=== PATIENT | female | born 1955 | race Caucasian/White ===

== ENCOUNTER 2017-06-10 10:01 | Day surgery (SDC) | payer OTHER ==
[2017-06-10] MEDS ORDERED: PROPOFOL 10 MG/ML VIAL IV ONE (10:02)
[2017-06-10] MEDS ORDERED: LIDOCAINE 2% MDV (20MG/ML) 20ML VIAL IV ONE (10:02)
--- NOTE | 2017-06-11 13:50 | Operative Note ---
DATE OF SURGERY: 06/10/2017 REFERRING PHYSICIAN: Wilbert Lopez DO PREOPERATIVE DIAGNOSIS: See below. POSTOPERATIVE DIAGNOSIS: See below. PROCEDURE: COLONOSCOPY to the cecum. INDICATION: Colorectal cancer screening. Intravenous sedation was administered by the Department of Anesthesiology and included Diprivan titrated to effect. PROCEDURE: Following informed consent from this alert individual, including a discussion of the risks and benefits of the procedure and an opportunity for the patient to ask questions, the patient was placed in the left lateral decubitus position. A digital rectal examination was performed. No abnormalities were noted. Following this, an Olympus [id number] video colonoscope was inserted into the rectum without resistance. The rectal mucosa had a normal appearance, with normal folds and distensibility. The colonoscope was advanced up through the colon to the level of the cecum without much difficulty. Throughout the bowel, the mucosa appeared normal, the folds are normal and the bowel is fairly well distensible. The cecum was defined by noting the appendiceal orifice and ileocecal valve. From the base of the cecum, the colonoscope was then withdrawn. The colon preparation was good. No abnormalities were detected upon withdrawal. Retroflexion of the rectum failed to demonstrate any changes. The endoscope was straightened and withdrawn. The patient tolerated the procedure well and was returned to the recovery area in stable condition. IMPRESSION: Unremarkable colonoscopy to the cecum. RECOMMENDATIONS: The patient was advised to have recheck colonoscopy in 10 years' time or sooner if problems arise. Followup otherwise will be with Dr. Lopez. As always, thank you for allowing me to participate in the care of your patient. CC: Wilbert Lopez DO MTDItalo
== END 2017-06-10 12:35 | disposition home or self-care (01) ==
LOC: HOP 10:01
PROVIDERS: ATTEND Internal Medicine Gastroenterology
DX: Z12.11 Encounter for screening for malignant neoplasm of colon (principal); I10 Essential (primary) hypertension
CPT/HCPCS: 00740; G0121

== ENCOUNTER 2017-06-11 10:35 | Emergency (ER) | payer OTHER ==
--- NOTE | 2017-06-11 10:56 | Emergency Department Record ---
History of Present Illness - General Chief Complaint: Arrythmia/Palpitations Stated Complaint: PALPITATIONS Time Seen by Provider: 06/11/17 10:52 Source: Patient, Family Mode of Arrival: Ambulatory Limitations: No limitations - History of Present Illness Initial Comments: 61 yo female presents with a feeling of palpitations. The onset was this morning. No chest pain, no syncope, no dizziness. She is now asymptomatic. She did have a colonoscopy with the typical prep yesterday. She states this went uneventfully. 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 No history of CAD. She takes Atenolol for the prior history of palpitations. MD Complaint: Palpitations Onset/Timin -: Hour(s) Context: Occurred during rest Arrythmia History: Atrial fibrillation Associated Symptoms: Anxiety, Nausea/vomiting, Near-syncope, Shortness of breath - Related Data Home Medications Medication Instructions Recorded Confirmed Last Taken Atenolol 50 mg PO DAILY 06/11/17 06/11/17 1 Day Ago ~06/10/17 Bumetanide [Bumex] 0.5 mg PO DAILY 06/11/17 06/11/17 1 Day Ago ~06/10/17 Cholecalciferol (Vitamin D3) 3,000 unit PO DAILY 06/11/17 06/11/17 1 Day Ago [Vitamin D3] ~06/10/17 Levothyroxine Sodium [Synthroid] 50 mcg PO DAILY 06/11/17 06/11/17 1 Day Ago ~06/10/17 Meloxicam [Mobic] 15 mg PO DAILY 06/11/17 06/11/17 1 Day Ago ~06/10/17 Multivitamin [Multi-Vitamin Daily] 1 each PO DAILY 06/11/17 06/11/17 1 Day Ago ~06/10/17 Tramadol HCl [Ultram] 50 mg PO BID PRN 06/11/17 06/11/17 1 Week Ago ~06/04/17 Allergies Allergy/AdvReac Type Severity Reaction Status Date / Time Penicillins Allergy RASH Verified 06/11/17 10:44 Travel Screening - Travel/Exposure Within Last 30 Days Have you traveled within the last 30 days?: No - Travel/Exposure Within Last Year Have you traveled outside the [place] in the last year?: No - Additonal Travel Details Have you been exposed to anyone with a communicable illness?: No - Travel Symptoms Symptom Screening: None Review of Systems Constitutional: Denies: Chills, Fever, Malaise, Weakness Eyes: Denies: Eye discharge, Eye pain, Photophobia, Vision change ENT: Denies: Congestion, Throat pain Respiratory: Denies: Cough, Dyspnea, Hemoptysis, Stridor, Wheezes Cardiovascular: Reports: Arrhythmia, Palpitations. Denies: Chest pain, Dyspnea on exertion, Edema, Syncope Endocrine: Denies: Fatigue, Polydipsia, Polyuria Gastrointestinal: Denies: Abdominal pain, Diarrhea, Nausea, Vomiting Genitourinary: Denies: Dysuria, Urgency Musculoskeletal: Denies: Arthralgia, Back pain, Joint swelling, Myalgia Skin: Denies: Bruising, Change in color, Rash Neurological: Denies: Headache, Numbness, Tingling, Tremors, Vertigo, Weakness Psychiatric: Denies: Anxiety Hematological/Lymphatic: Denies: Blood Clots, Easy bleeding, Easy bruising, Swollen glands Past Medical History - SOCIAL HISTORY Smoking Status: Never smoker Alcohol Use: None Drug Use: None - RESPIRATORY Hx Respiratory Disorders: No - CARDIOVASCULAR Hx Cardio Disorders: Yes Hx Cardiac Cath: Yes (2007-no stents) Hx Edema: Yes Hx Irregular Heartbeat: Yes (? irreg-no problems, a-fib 10-12 years ago) - NEURO Hx Neuro Disorders: Yes Hx Headaches: Yes (sinus) - GI Hx GI Disorders: No - Hx Genitourinary Disorders: No Comment:: post menopausal-unsure of date d/t ablation - ENDOCRINE Hx Endocrine Disorders: Yes Hx Thyroid Disease: Yes - MUSCULOSKELETAL Hx Musculoskeletal Disorders: Yes Hx Arthritis: Yes (bilat knees) - PSYCH Hx Psych Problems: No - HEMATOLOGY/ONCOLOGY Hx Hematology/Oncology Disorders: Yes Hx Bruising: Yes (bruises easily) Family Medical History Any Significant Family History?: Yes Family Hx Comment (NOT TO BE USED IN PLACE OF ITEMS BELOW): pt adopted Physical Exam - General General Appearance: Alert, Oriented x3, Cooperative, No acute distress Limitations: No limitations - Head Head exam: Normal inspection - Eye Eye exam: Normal appearance, PERRL. negative: Conjunctival injection, Periorbital swelling - ENT ENT exam: Normal exam, Mucous membranes moist, Normal external ear exam, Normal orophraynx, TM's normal bilaterally Ear exam: Normal external inspection. negative: External canal tenderness Nasal Exam: Normal inspection. negative: Discharge, Sinus tenderness Mouth exam: Normal external inspection, Tongue normal - Neck Neck exam: Normal inspection, Full ROM. negative: Tenderness - Respiratory Respiratory exam: Normal lung sounds bilaterally. negative: Respiratory distress - Cardiovascular Cardiovascular Exam: Regular rate, Normal rhythm, Normal heart sounds Peripheral Pulses: 2+: Radial (R), Radial (L) - GI/Abdominal GI/Abdominal exam: Soft. negative: Tenderness - Rectal Rectal exam: Deferred - exam: Deferred - Extremities Extremities exam: Normal inspection, Full ROM, Normal capillary refill. negative: Tenderness - Back Back exam: Reports: Normal inspection, Full ROM. Denies: Muscle spasm, Rash noted, Tenderness - Neurological Neurological exam: Alert, Normal gait, Oriented X3 - Psychiatric Psychiatric exam: Normal affect, Normal mood - Skin Skin exam: Dry, Intact, Normal color, Warm Course Vital Signs 06/11/17 10:38 Temperature 97.7 F Pulse Rate 68 Respiratory 20 Rate Blood Pressure 154/81 Pulse Ox 97 - Reevaluation(s) Reevaluation #1: EKG 10:49 NSR, rate 59, intervals normal axis normal, ST normal. 06/11/17 10:57 06/11/17 11:31 No acute changes on the monitor or rhythm The labs were reviewed. No changes. 06/11/17 11:59 The TSH is normal No palpitations or arrhythmia in the ED The patient will be referred for cardiology outpatient follow up 06/11/17 12:12 Remains asymptomatic. DC for follow up tomorrow with Dr Fox Medical Decision Making - Lab Data Result diagrams: 06/11/17 10:53 06/11/17 10:53 Disposition Disposition: Discharge Clinical Impression: Palpitations Disposition: Home, Self-Care Condition: (1) Good Instructions: Heart Palpitations (ED) Additional Instructions: Follow up tomorrow as scheduled Return if you have any palpitations that lasting longer that a few seconds or frequent. Referrals: FERNANDA FOX M.D. [MEDICAL DOCTOR] - [facility] Specialty Clinics [Provider Group] Forms: Patient Portal Access Time of Disposition: 12:12 Quality - Quality Measures Quality Measures: N/A - Blood Pressure Screening Does Patient Have Any of the Following: No Blood Pressure Classification: Pre-Hypertensive BP Reading Systolic Measurement: 154 Diastolic Measurement: 81 Screening for High Blood Pressure: < Pre-Hypertensive BP, F/U Documented > [ G8950] Pre-Hypertensive Follow-up Interventions: Referral to alternative/primary care provider.
[2017-06-11 11:02] LABS: BASO % 0.4 % (0-6); EOS % 2.3 % (0-6); GRAN % 72.3 % (47-80); HEMATOCRIT 41.9 % (35.0-47.0); HEMOGLOBIN 13.6 gm/dl (11.6-16.0); LYMPH % 17.1 % (16-45); MEAN CELL VOLUME 87.7 fl (81-97); MEAN CORPUSCULAR HEMOGLOBIN 28.5 pg (27-33); MEAN CORPUSCULAR HGB CONC 32.5 g/dl (32-36); MONO % 7.9 % (0-9); PLATELET COUNT 216 K/uL (130-400); RED BLOOD COUNT 4.78 M/uL (3.80-5.40); WHITE BLOOD COUNT W/O DIFF 5.7 K/uL (4.2-12.2)
[2017-06-11 11:24] LABS: ALB/GLOB RATIO 1.5 (1.1-1.8); ALBUMIN 4.1 g/dL (4.0-5.0); ALKALINE PHOSPHATASE 81 U/L (35-104); ALT/SGPT 14 U/L (<33); AST/SGOT 16 U/L (10.0-35.0); BLOOD UREA NITROGEN 19 mg/dL (8-23); CREATININE 0.9 mg/dL (0.5-0.9); EST GLOMERULAR FILTRATION RATE > 60 mL/min; GLUCOSE,RANDOM 133 mg/dL (74-109); TOTAL PROTEIN 6.9 g/dL (6.6-8.7)
[2017-06-11 11:30] LABS: THYROID STIMULATING HORMONE 2.16 uIU/mL (0.270-4.20)
== END 2017-06-11 12:36 | disposition home or self-care (01) ==
LOC: ER 10:35
DX: R00.2 Palpitations (principal); R11.2 Nausea with vomiting, unspecified; R06.02 Shortness of breath; R55 Syncope and collapse
CPT/HCPCS: 80053; 83735; 84443; 85025; 93005; 93010; 99284

== ENCOUNTER 2019-06-22 00:08 | Emergency (ER) | payer OTHER ==
[2019-06-22] MEDS ORDERED: ONDANSETRON HCL IV 4 MG/2 ML VIAL IVP ONE (00:15)
[2019-06-22] MEDS ORDERED: KETOROLAC 30 MG/ML VIAL IVP ONE (00:15)
--- NOTE | 2019-06-22 00:19 | Emergency Department Record ---
History of Present Illness - General Chief complaint: Flank Pain Stated complaint: FLANK PAIN Time Seen by Provider: 06/22/19 00:11 Source: Patient Mode of Arrival: Ambulatory Limitations: No limitations - History of Present Illness Initial comments: 63 yo female presents to ED for evaluation of right sided flank pain symptoms which began approximately 5 hours ago, intermittent in nature. Patient reports associated loose stools, denies fevers, chills, or vomiting symptoms. Patient denies history of symptoms previously, reports history of HTN and h ypothyroidism. MD Complaint: Other Onset/Timin -: Hour(s) Radiation: R flank Severity: Severe Quality: Aching Consistency: Intermittent Improves with: None Worsens with: None Patient : No Associated Symptoms: Denies other symptoms - Related Data Previous Rx's Medication Instructions Recorded Tamsulosin HCl [Flomax] 0.4 mg PO DAILY #15 cap.er.24h 06/22/19 Allergies Allergy/AdvReac Type Severity Reaction Status Date / Time Penicillins Allergy RASH Verified 06/11/17 10:44 Review of Systems Constitutional: Denies: Chills, Fever, Malaise, Night sweats Eyes: Denies: Eye discharge, Eye pain ENT: Denies: Congestion, Ear pain, Epistaxis Respiratory: Denies: Cough, Dyspnea Cardiovascular: Denies: Chest pain, Dyspnea on exertion Endocrine: Denies: Fatigue, Heat or cold intolerance Gastrointestinal: Reports: Abdominal pain. Denies: Nausea, Vomiting Genitourinary: Denies: Incontinence, Retention Musculoskeletal: Reports: Back pain. Denies: Arthralgia, Gout, Joint swelling Skin: Denies: Bruising, Change in color Neurological: Denies: Abnormal gait, Confusion, Headache, Seizure Psychiatric: Denies: Anxiety Hematological/Lymphatic: Denies: Anemia, Blood Clots Past Medical History - SOCIAL HISTORY Smoking Status: Never smoker Drug Use: None - RESPIRATORY Hx Respiratory Disorders: No - CARDIOVASCULAR Hx Cardio Disorders: Yes Hx Cardiac Cath: Yes (2006-no stents) Hx Edema: Yes Hx Irregular Heartbeat: Yes (? irreg-no problems, a-fib 10-12 years ago) - NEURO Hx Neuro Disorders: Yes Hx Headaches: Yes (sinus) - GI Hx GI Disorders: No - Hx Genitourinary Disorders: No Comment:: post menopausal-unsure of date d/t ablation - ENDOCRINE Hx Endocrine Disorders: Yes Hx Thyroid Disease: Yes - MUSCULOSKELETAL Hx Musculoskeletal Disorders: Yes Hx Arthritis: Yes (bilat knees) - PSYCH Hx Psych Problems: No - HEMATOLOGY/ONCOLOGY Hx Hematology/Oncology Disorders: Yes Hx Bruising: Yes (bruises easily) Family Medical History Family Hx Comment (NOT TO BE USED IN PLACE OF ITEMS BELOW): pt adopted Physical Exam - General General Appearance: Alert, Oriented x3, Cooperative, Moderate distress Limitations: No limitations - Head Head exam: Atraumatic, Normocephalic, Normal inspection Head exam detail: negative: Abrasion, Contusion, Thomas's sign, General tenderness, Hematoma, Laceration - Eye Eye exam: Normal appearance. negative: Conjunctival injection, Periorbital swelling, Periorbital tenderness, Scleral icterus - ENT Ear exam: negative: Auricular hematoma, Auricular trauma Nasal Exam: negative: Active bleeding, Discharge, Dried blood, Foreign body Mouth exam: negative: Drooling, Laceration, Muffled voice, Tongue elevation - Neck Neck exam: Normal inspection. negative: Meningismus, Tenderness - Respiratory Respiratory exam: Normal lung sounds bilaterally. negative: Rales, Respiratory distress, Rhonchi, Stridor - Cardiovascular Cardiovascular Exam: Regular rate, Normal rhythm, Normal heart sounds - GI/Abdominal GI/Abdominal exam: Soft. negative: Rebound, Rigid, Tenderness - Rectal Rectal exam: Deferred - exam: Deferred - Extremities Extremities exam: Normal inspection. negative: Pedal edema, Tenderness - Back Back exam: Reports: CVA tenderness (R). Denies: CVA tenderness (L) - Neurological Neurological exam: Alert, Normal gait, Oriented X3 - Psychiatric Psychiatric exam: Normal affect, Normal mood - Skin Skin exam: Normal color. negative: Abrasion Type of lesion: negative: abrasion Course Vital Signs 06/22/19 00:12 Temperature 97.4 F L Pulse Rate [ 68 Pulse Ox Probe] Respiratory 24 Rate Blood Pressure 170/70 [Left Arm] Pulse Ox 96 - Reevaluation(s) Reevaluation #1: 06/22/19 01:11 Laboratory studies were reviewed and appear grossly unremarkable for an acute process except for the following: UA demonstrates the followin-6 RBCs 0-2 WBCs 2+ Oxylate crystals CT Abdomen/Pelvis: 3 mm obstructing calculus distal right UVJ Patient was updated on all results, reports that she is feeling much improved. Patient was updated on all results, appears stable for discharge with urologic follow-up with Dr. Peterson in 3-5 days as directed. Medical Decision Making - Lab Data Result diagrams: 06/22/19 00:25 06/22/19 00:25 Disposition Disposition: Discharge Clinical Impression: Ureteral calculus, right Disposition: Home, Self-Care Condition: (2) Stable Instructions: Kidney Stones (ED) Additional Instructions: Return to ED if your symptoms worsen or if you have any concerns. Flomax and [place] as directed. Follow-up with Dr. Peterson in 3-5 days as directed. Prescriptions: Tamsulosin HCl [Flomax] 0.4 mg PO DAILY #15 cap.er.24h Referrals: Maritn Peterson M.D. [MEDICAL DOCTOR] - [facility] Specialty Clinics [Provider Group] Forms: Patient Portal Access Time of Disposition: 01:19 Quality - Quality Measures Quality Measures: N/A - Blood Pressure Screening Does Patient Have Any of the Following: No Blood Pressure Classification: Pre-Hypertensive BP Reading Systolic Measurement: 140 Diastolic Measurement: 89 Screening for High Blood Pressure: < Pre-Hypertensive BP, F/U Documented > [G8950] Pre-Hypertensive Follow-up Interventions: Referral to alternative/primary care provider.
[2019-06-22] MEDS ORDERED: 0.9 % SODIUM CHLORIDE 1000ML 1,000 ML IV SCH (00:30)
[2019-06-22 00:43] LABS: URINE APPEARANCE CLEAR; URINE BILIRUBIN NEGATIVE (NEGATIVE); URINE BLOOD SMALL (NEGATIVE); URINE COLOR YELLOW; URINE GLUCOSE (UA) NEGATIVE (NEGATIVE); URINE KETONE NEGATIVE (NEGATIVE); URINE LEUKOCYTE ESTERASE NEGATIVE (NEGATIVE); URINE NITRITE NEGATIVE (NEGATIVE); URINE PROTEIN NEGATIVE (NEGATIVE); URINE UROBILINOGEN 0.2 E.U./dL (0.20 - 1.00)
[2019-06-22 00:46] LABS: ABSOLUTE NEUTROPHIL COUNT 9.47; BASO % 0.2 % (0-6); EOS % 1.5 % (0-6); GRAN % 78.2 % (47-80); HEMATOCRIT 44.6 % (35.0-47.0); HEMOGLOBIN 14.1 gm/dl (11.6-16.0); LYMPH % 12.5 % (16-45); MEAN CELL VOLUME 90.3 fl (81-97); MEAN CORPUSCULAR HEMOGLOBIN 28.5 pg (27-33); MEAN CORPUSCULAR HGB CONC 31.6 g/dl (32-36); MEAN PLATELET VOLUME 11.3 fl (7.4-10.4); MONO % 7.6 % (0-9); PLATELET COUNT 230 K/uL (130-400); RED BLOOD COUNT 4.94 M/uL (3.80-5.40); RED CELL DISTRIBUTION WIDTH 13.7 % (11.5-14.5); WHITE BLOOD COUNT W/O DIFF 12.1 K/uL (4.2-12.2)
[2019-06-22 00:58] LABS: URINE BACTERIA FEW; URINE CALCIUM OXALATE CRYSTALS 2+ /hpf; URINE MUCUS MODERATE; URINE WBC 0 - 2 (0-2/hpf)
--- NOTE | 2019-06-22 01:03 | CT SCAN REPORT ---
EXAMINATION: CT Abdomen and Pelvis without IV Contrast EXAM DATE: 06/22/2019 1:00 AM TECHNIQUE: Standard protocol CT imaging of the abdomen and pelvis was performed without intravenous c ontrast. INDICATION: right sided flank pain COMPARISON: None ENCOUNTER: Not applicable CT ABDOMEN AND PELVIS FINDINGS: Lung Bases: Included extent of the lung bases are clear. Hepatobiliary: The liver has a normal size with a smooth surface. Pancreas: The pancreas is normal. Spleen: The spleen is not enlarged. Adrenals: The adrenal glands are normal. Gastrointestinal: The stomach and small bowel are normal with no obstruction or inflammation. The lar ge bowel is within normal limits. Reproductive Organs: Unremarkable Lymphatic System: There is no adenopathy within the abdomen or pelvis. Vasculature: Normal caliber abdominal aorta Peritoneum: No free fluid, free air, or inflammation Assessment of the solid organs, soft tissues, and vascular structures is overall limited on noncontra st imaging, IMPRESSION: 3 mm obstructing calculus at the right ureterovesicular junction. This produces moderate to severe ri ght hydronephrosis/hydroureter. Left peripelvic cystic lesions. No obstructing calculi appreciated Dictated by: Isabella Ortega DO on 06/22/2019 1:00 AM. .
[2019-06-22] MEDS ORDERED: HYDROCODONE/APAP 7.5/325MG TABLET PO ONE (01:19)
[2019-06-22 02:06] LABS: BILIRUBIN,TOTAL 0.4 mg/dL (0.2-1.0); CREATININE 1.2 mg/dL (0.5-0.9); TOTAL PROTEIN 6.6 g/dL (6.6-8.7)
[2019-06-22 02:11] LABS: ALB/GLOB RATIO 1.9 (1.1-1.8); ALBUMIN 4.3 g/dL (4.0-5.0)
== END 2019-06-22 02:18 | disposition home or self-care (01) ==
LOC: ER 00:08
DX: N13.2 Hydronephrosis with renal and ureteral calculous obstruction (principal); R11.0 Nausea; I10 Essential (primary) hypertension; E03.9 Hypothyroidism, unspecified
CPT/HCPCS: 74176; 80053; 81001; 83690; 85025; 96361; 96374; 96375; 99284; J1885; J2405; J7030